=== PATIENT | male | born 1960 | race Caucasian/White ===

== ENCOUNTER → 2018-01-05 | Outpatient (CLI) | payer BC ==
--- NOTE | 2018-01-05 14:49 | NM ---
EXAMINATION TYPE: NM bone 3 phase DATE OF EXAM: 01/05/2018 COMPARISON: NONE HISTORY: Osteomyelitis, pain third digit right hand Triple phase bone scintigraphy was performed following the injection of21.9 mCi Tc 99m MDP. Immediat e images and 5 hours post injection images acquired over the hands. FINDINGS: Blood flow and blood pool activity show symmetric radio pharmaceutical uptake to the hands, there is only questionable mild increased uptake to the distal third digit on immediate blood pool images. Del ayed focal uptake is noted at the distal aspect of the third digit of the right hand. IMPRESSION: Abnormal uptake noted on delayed imaging to the third digit of the right hand distally, correlate for trauma, infection not excluded.
== END | disposition home or self-care (01) ==
LOC: RADNMMAIN 07:39
PROVIDERS: ATTEND Orthopaedic Surgery Hand Surgery
DX: M79.644 Pain in right finger(s) (principal); M79.89 Other specified soft tissue disorders
CPT/HCPCS: 78315; A9503

== ENCOUNTER → 2018-01-20 | Outpatient (CLI) | payer BC ==
[2018-01-20 11:31] LABS: Basophils # (A) 0.1 k/uL (0-0.2); Basophils % (A) 0 %; Eosinophils # (A) 0.3 k/uL (0-0.7); Eosinophils % (A) 2 %; HCT 47.1 % (39.0-53.0); HGB 15.6 gm/dL (13.0-17.5); Lymphocytes # (A) 4.1 k/uL (1.0-4.8); Lymphocytes % (A) 31 %; MCH 30.4 pg (25.0-35.0); MCHC 33.2 g/dL (31.0-37.0); MCV 91.6 fL (80.0-100.0); Mean Platelet Volume 6.7; Monocytes # (A) 0.7 k/uL (0-1.0); Monocytes % (A) 5 %; Neutrophils # (A) 7.7 k/uL (1.3-7.7); Neutrophils % (A) 59 %; Platelet Count 356 k/uL (150-450); RBC 5.15 m/uL (4.30-5.90); RDW 13.3 % (11.5-15.5); WBC 13.2 k/uL (3.8-10.6)
[2018-01-20 12:07] LABS: ALT 38 U/L (21-72); AST 26 U/L (17-59); Alkaline Phosphatase 61 U/L (38-126); Anion Gap 13 mmol/L; Blood Urea Nitrogen 18 mg/dL (9-20); C Reactive Protein <5.0 mg/L (<10.0); Calcium 9.4 mg/dL (8.4-10.2); Carbon Dioxide 27 mmol/L (22-30); Chloride 105 mmol/L (98-107); Glucose 149 mg/dL (74-99); Potassium 4.5 mmol/L (3.5-5.1); Sodium 145 mmol/L (137-145); Total Bilirubin 0.3 mg/dL (0.2-1.3); Total Protein 6.3 g/dL (6.3-8.2)
[2018-01-20 13:46] LABS: Erythrocyte Sedimentation Rate 8 mm/hr (0-15)
== END | disposition home or self-care (01) ==
LOC: LABWHC1 10:51
PROVIDERS: ATTEND Internal Medicine Infectious Disease
DX: M86.8X4 Other osteomyelitis, hand (principal)
CPT/HCPCS: 36415; 80053; 85025; 85652; 86140

== ENCOUNTER 2018-02-01 13:26 | Day surgery (SDC) | payer BC ==
[2018-01-29 11:58] VITALS: BMI 33.4
[~2018-02-01 13:26] MED LIST: cefTRIAXone 2 MG in SODIUM CHLORIDE 0.9% 50 ML IVPB ONE; cefTRIAXone IN SWFI 2,000 MG/20 ML SYRINGE IVP ONE
[2018-02-01 14:03] VITALS: TEMP 98.2
[2018-02-01 14:07] LABS: Glucose,Whole Blood 240 mg/dL (75-99)
[2018-02-01] MEDS ORDERED: LIDOCAINE 2% INJ 20 MG/ML SQ ONE (14:20)
--- NOTE | 2018-02-01 14:43 | IR ---
PICC LINE PLACEMENT: HISTORY: Infection requiring long-term antibiotic therapy PROCEDURE: Ultrasound and fluoroscopic guidance of PICC line placement. COMPLICATIONS: None ANESTHESIA: 1. 1% Lidocaine locally. FINDINGS/TECHNIQUE: The procedure was explained to the patient. The risks, complications, benefits and alternatives were discussed and any questions were answered. Informed consent was obtained. The patient was placed supine on the fluoroscopic table and prepped and draped in the usual sterile fas ion. Utilizing a 21 gauge needle and sonographic and fluoroscopic guidance, access in the vein was achieved and there is placement of a 0.018 guidewire. The vein is patent. A 4-F sheath was placed o maximilian the guidewire. The guidewire and dilator were removed and a 4-F. PICC line was placed through th e sheath with the tip at the level of the SVC. The sheath was removed, the catheter was flushed and sutured into position. The patient was stable throughout the procedure and remained stable upon disc harge from the Department of Radiology. The vein puncture was patent under ultrasound. A james scale image was obtained to document patency of the vein punctured. All elements of the maximal barrier technique were utilized. FLUOROSCOPY TIME: 0.1 minute, one image submitted. IMPRESSION: Successful PICC line placement under ultrasound and fluoroscopic guidance.
[2018-02-01 15:03] VITALS: BP 156/74; PULSE 78; RESP 16
== END 2018-02-01 14:55 | disposition home or self-care (01) ==
LOC: CATHCVL 13:26
PROVIDERS: ATTEND Radiology Diagnostic Radiology
DX: M86.8X4 Other osteomyelitis, hand (principal); M19.90 Unspecified osteoarthritis, unspecified site; I73.1 Thromboangiitis obliterans [Buerger's disease]; E78.00 Pure hypercholesterolemia, unspecified; E11.42 Type 2 diabetes mellitus with diabetic polyneuropathy; Z79.4 Long term (current) use of insulin; Z79.899 Other long term (current) drug therapy; F17.210 Nicotine dependence, cigarettes, uncomplicated
CPT/HCPCS: 36569; 76937; 77001; C1751; C1769; J2001; J0696

== ENCOUNTER → 2018-04-05 | Outpatient (CLI) | payer BC ==
[2018-04-05 07:45] LABS: Basophils # (A) 0.1 k/uL (0-0.2); Basophils % (A) 1 %; Eosinophils # (A) 0.3 k/uL (0-0.7); Eosinophils % (A) 3 %; HGB 17.1 gm/dL (13.0-17.5); Lymphocytes # (A) 1.8 k/uL (1.0-4.8); Lymphocytes % (A) 16 %; MCH 30.5 pg (25.0-35.0); MCHC 32.8 g/dL (31.0-37.0); MCV 92.9 fL (80.0-100.0); Mean Platelet Volume 6.9; Monocytes # (A) 0.8 k/uL (0-1.0); Monocytes % (A) 7 %; Neutrophils # (A) 8.2 k/uL (1.3-7.7); Neutrophils % (A) 73 %; Platelet Count 356 k/uL (150-450); RBC 5.59 m/uL (4.30-5.90); RDW 13.5 % (11.5-15.5); WBC 11.3 k/uL (3.8-10.6)
== END | disposition home or self-care (01) ==
LOC: LABWHC1 06:56
PROVIDERS: ATTEND Internal Medicine Infectious Disease
DX: M86.9 Osteomyelitis, unspecified (principal)
CPT/HCPCS: 36415; 85025

== ENCOUNTER → 2018-08-11 | Outpatient (CLI) | payer BC ==
[2018-08-11 07:36] LABS: HCT 51.8 % (39.0-53.0); HGB 17.1 gm/dL (13.0-17.5); MCH 31.1 pg (25.0-35.0); MCV 94.2 fL (80.0-100.0); Mean Platelet Volume 6.7; Platelet Count 377 k/uL (150-450); RDW 13.6 % (11.5-15.5); WBC 12.2 k/uL (3.8-10.6)
[2018-08-11 12:56] LABS: Albumin 4.4 g/dL (3.80-4.90); Albumin/Globulin Ratio 2.59 (1.20-2.10); Anion Gap 11.7 mmol/L (4.00-12.00); Calcium 9.6 mg/dL (8.7-10.3); Carbon Dioxide 23.3 mmol/L (21.6-31.8); Globulin 1.7 g/dL (2.1-3.7); LDL Cholesterol,Calculated 107.8 mg/dL (0.0-131.0); Potassium 4.9 mmol/L (3.5-5.5); Total Bilirubin 0.6 mg/dL (0.3-1.2); Total Protein 6.1 g/dL (6.2-8.2); VLDL Calculation 27.2 mg/dL (5.00-40.00)
== END ==
LOC: LABWHC1 06:40
PROVIDERS: ATTEND Internal Medicine Endocrinology, Diabetes & Metabolism
DX: E11.65 Type 2 diabetes mellitus with hyperglycemia (principal); E29.1 Testicular hypofunction
CPT/HCPCS: 36415; 80053; 80061; 83036; 84153; 84403; 85027

== ENCOUNTER → 2018-08-13 | Outpatient (CLI) | payer BC | LOC: LABWHC1 06:32 | PROVIDERS: ATTEND Internal Medicine Endocrinology, Diabetes & Metabolism | DX: E11.65 Type 2 diabetes mellitus with hyperglycemia (principal); E29.1 Testicular hypofunction | CPT/HCPCS: 82043; 82570 ==

== ENCOUNTER → 2018-08-17 | Outpatient (CLI) | payer BC | END | disposition home or self-care (01) | LOC: LABWHC1 06:39 | PROVIDERS: ATTEND Internal Medicine Endocrinology, Diabetes & Metabolism | DX: E29.1 Testicular hypofunction (principal) | CPT/HCPCS: 36415; 84403 ==

== ENCOUNTER → 2018-12-02 | Outpatient (CLI) | payer BC ==
[2018-12-02 08:02] LABS: HCT 47.8 % (39.0-53.0); HGB 15.7 gm/dL (13.0-17.5); MCH 30.7 pg (25.0-35.0); MCHC 32.7 g/dL (31.0-37.0); Mean Platelet Volume 6.3; Platelet Count 393 k/uL (150-450); RBC 5.09 m/uL (4.30-5.90); RDW 13.1 % (11.5-15.5); WBC 11.1 k/uL (3.8-10.6)
[2018-12-02 14:37] LABS: Hemoglobin A1C 8.2 % (4.0-6.0)
== END | disposition home or self-care (01) ==
LOC: LABWHC1 06:40
PROVIDERS: ATTEND Internal Medicine Endocrinology, Diabetes & Metabolism
DX: E11.65 Type 2 diabetes mellitus with hyperglycemia (principal); E29.1 Testicular hypofunction
CPT/HCPCS: 36415; 80061; 83036; 84443; 85027

== ENCOUNTER → 2019-01-19 | Outpatient (CLI) | payer BC ==
[2019-01-19 13:48] LABS: HCT 49.8 % (39.0-53.0); HGB 16.2 gm/dL (13.0-17.5); MCH 30.3 pg (25.0-35.0); MCHC 32.5 g/dL (31.0-37.0); MCV 93.2 fL (80.0-100.0); Mean Platelet Volume 6.4; Platelet Count 392 k/uL (150-450); RBC 5.35 m/uL (4.30-5.90); RDW 13.3 % (11.5-15.5); WBC 12.9 k/uL (3.8-10.6)
[2019-01-19 21:17] LABS: Hemoglobin A1C 8.9 % (4.0-6.0)
== END | disposition home or self-care (01) ==
LOC: LABWHC1 12:41
PROVIDERS: ATTEND Internal Medicine Endocrinology, Diabetes & Metabolism
DX: E29.1 Testicular hypofunction (principal); E11.65 Type 2 diabetes mellitus with hyperglycemia
CPT/HCPCS: 36415; 83036; 84403; 85027

== ENCOUNTER → 2019-03-21 | Outpatient (CLI) | payer BC ==
[2019-03-21 08:51] LABS: HCT 50.6 % (39.0-53.0); HGB 16.4 gm/dL (13.0-17.5); MCH 30.5 pg (25.0-35.0); MCHC 32.4 g/dL (31.0-37.0); Mean Platelet Volume 7.6; Platelet Count 412 k/uL (150-450); RBC 5.38 m/uL (4.30-5.90); RDW 14.8 % (11.5-15.5); WBC 14.3 k/uL (3.8-10.6)
[2019-03-21 17:07] LABS: Hemoglobin A1C 7.7 % (4.0-6.0)
== END | disposition home or self-care (01) ==
LOC: LABWHC1 06:32
PROVIDERS: ATTEND Internal Medicine Endocrinology, Diabetes & Metabolism
DX: E11.65 Type 2 diabetes mellitus with hyperglycemia (principal); E29.1 Testicular hypofunction
CPT/HCPCS: 36415; 83036; 84403; 85027

== ENCOUNTER → 2019-07-13 | Outpatient (CLI) | payer BC ==
[2019-07-13 07:27] LABS: Basophils # (A) 0.2 k/uL (0-0.2); Basophils % (A) 2 %; Eosinophils # (A) 0.4 k/uL (0-0.7); Eosinophils % (A) 4 %; HCT 47.9 % (39.0-53.0); HGB 14.8 gm/dL (13.0-17.5); Lymphocytes # (A) 3.5 k/uL (1.0-4.8); Lymphocytes % (A) 29 %; MCV 96.7 fL (80.0-100.0); Mean Platelet Volume 6.3; Monocytes # (A) 0.7 k/uL (0-1.0); Monocytes % (A) 6 %; Neutrophils # (A) 6.8 k/uL (1.3-7.7); Neutrophils % (A) 57 %; Platelet Count 414 k/uL (150-450); RBC 4.95 m/uL (4.30-5.90); RDW 13.3 % (11.5-15.5); WBC 11.9 k/uL (3.8-10.6)
[2019-07-13 12:19] LABS: Albumin 4.3 g/dL (3.80-4.90); Albumin/Globulin Ratio 2.69 (1.60-3.17); Anion Gap 11.8 mmol/L (4.00-12.00); Carbon Dioxide 25.2 mmol/L (21.6-31.8); Chol/HDL Ratio 5.54; Globulin 1.6 g/dL (1.6-3.3); LDL Cholesterol,Calculated 103.8 mg/dL (0.0-131.0); Potassium 4.4 mmol/L (3.5-5.5); Total Bilirubin 0.5 mg/dL (0.2-1.2); Total Protein 5.9 g/dL (6.2-8.2); VLDL Calculation 23.2 mg/dL (5.00-40.00)
[2019-07-13 14:36] LABS: Hemoglobin A1C 7.7 % (4.0-6.0)
== END | disposition home or self-care (01) ==
LOC: LABWHC1 07:01
PROVIDERS: ATTEND Internal Medicine Endocrinology, Diabetes & Metabolism
DX: E11.65 Type 2 diabetes mellitus with hyperglycemia (principal); E29.1 Testicular hypofunction
CPT/HCPCS: 36415; 80053; 80061; 82043; 82570; 83036; 84153; 84403; 84443; 85025

== ENCOUNTER 2020-04-09 06:03 | Day surgery (SDC) | payer BC ==
[2020-04-05 16:10] VITALS: BMI 33.4
--- NOTE | 2020-04-08 11:48 | P.GSHP ---
History of Present Illness H&P Date: 04/08/20 59 yo male who was in [facility] recently with an 8mm left proximal ureteral stone. He was given treatment options and chose to have eswl left h=if he didnt pass it in the interim He comes for eswl left He also has an 8mm llp renal stone - Constitutional Constitutional: Denies chills, Denies fever - EENT Eyes: denies blurred vision, denies pain Ears, nose, mouth and throat: Denies headache, Denies sore throat - Cardiovascular Cardiovascular: Denies chest pain, Denies shortness of breath - Respiratory Respiratory: Denies cough, Denies 7 - Gastrointestinal Gastrointestinal: Denies abdominal pain, Denies diarrhea, Denies nausea, Denies vomiting - Genitourinary (Female) Genitourinary: Denies dysuria, Denies hematuria - Genitourinary (Male) Genitourinary: Denies dysuria, Denies hematuria - Musculoskeletal Musculoskeletal: Denies myalgias - Integumentary Integumentary: Denies pruritus, Denies rash - Neurological Neurological: Denies numbness, Denies weakness - Psychiatric Psychiatric: Denies anxiety, Denies depression - Endocrine Endocrine: Denies fatigue, Denies weight change Past Medical History Past Medical History: Diabetes Mellitus, Osteoarthritis (OA), Pulmonary Embolus (PE), Renal Disease, Sleep Apnea/CPAP/BIPAP, Vascular Disorder Additional Past Medical History / Comment(s): Buerger's disease, hx of osteomylitis and blood clot at picc line which may have caused Pulmonary emboli., uses c-pap machine, state he is to see Dr. Daniel for elevated wbc's ., kidney stone. History of Any Multi-Drug Resistant Organisms: None Reported Past Surgical History: Back Surgery, Orthopedic Surgery Additional Past Surgical History / Comment(s): L great toe and R 2nd toe amputation.R forearm surgery for a laceration. Past Anesthesia/Blood Transfusion Reactions: No Reported Reaction Past Psychological History: No Psychological Hx Reported Smoking Status: Current every day smoker Past Alcohol Use History: None Reported Additional Past Alcohol Use History / Comment(s): Started smoking as a teenager smokes 1/2 ppd or less, Hx of 1 1/2 PPD. Past Drug Use History: None Reported - Past Family History Mother Family Medical History: Cancer Additional Family Medical History / Comment(s): Breast Medications and Allergies Home Medications Medication Instructions Recorded Confirmed Type Cilostazol [Pletal] 100 mg PO DAILY 01/29/18 04/05/20 History Insulin Glargine [Lantus] 100 unit SQ HS 01/29/18 04/05/20 History metFORMIN HCL 1,000 mg PO BID 01/29/18 04/05/20 History Cholecalciferol (Vitamin D3) 250 mcg PO DAILY 04/05/20 04/05/20 History [Vitamin D3] Ketorolac [Toradol] 10 mg PO Q6HR 04/05/20 04/05/20 History Lutein 25 mg PO DAILY 04/05/20 04/05/20 History [place]-3 Fatty Acids/Fish Oil [Fish 1 each PO DAILY 04/05/20 04/05/20 History Oil 1,000 mg Softgel] Ozempic 0.5 mg SQ WEEKLY 04/05/20 History Rosuvastatin Calcium [Crestor] 10 mg PO DAILY 04/05/20 04/05/20 History Tamsulosin [Flomax] 0.4 mg PO HS 04/05/20 04/05/20 History Testosterone Injection 1 dose IM WEEKLY 04/05/20 History Vitamin B Complex 1 each PO DAILY 04/05/20 04/05/20 History Allergies Allergy/AdvReac Type Severity Reaction Status Date / Time No Known Allergies Allergy Verified 04/05/20 15:24 Surgical - Exam - General well developed, well nourished, no distress - Eyes PERRL - ENT no hearing loss - Neck trachea midline - Respiratory normal expansion, normal respiratory effort - Cardiovascular Rhythm: regular - Abdomen Abdomen: soft, non tender - Genitourinary normal penis with no external lesions, testicles present - Integumentary no rash, no growths - Neurologic normal coordination - Musculoskeletal normal gait, normal posture - Psychiatric oriented to time, oriented to person, oriented to place, speech is normal, memory intact Results - Imaging Abdominal x-ray: report reviewed, image reviewed CT scan - abdomen: report reviewed, image reviewed CT scan - pelvis: report reviewed, image reviewed Assessment and Plan Assessment: Impression: Left proximal ureteral stone Plan: eswl left
[~2020-04-09 06:03] MED LIST changes: +LACTATED RINGERS 1,000 ML IV SCH; +LIDOCAINE 1% (10MG/ML) FOR IV START INTRADERMA PRN; -cefTRIAXone 2 MG in SODIUM CHLORIDE 0.9% 50 ML IVPB ONE; -cefTRIAXone IN SWFI 2,000 MG/20 ML SYRINGE IVP ONE
--- NOTE | 2020-04-09 06:18 | XR ---
EXAMINATION TYPE: XR KUB DATE OF EXAM: 04/09/2020 6:12 AM CLINICAL HISTORY: Left-sided kidney stones scheduled for lithotripsy. TECHNIQUE: Two Upright KUB images of the abdomen are obtained. COMPARISON: None. FINDINGS: There is 5 mm left-sided renal calculus at L3 vertebral body level. There are probable 1-2 additional smaller calculi bilaterally near this level. Suboptimal due to overlying bowel gas and fecal material. Calcification of the vas deferens. Multilev el spurring throughout the spine. Disc space narrowing lower lumbar levels. Lung bases are clear. IMPRESSION: As above.
[2020-04-09 06:40] LABS: Glucose,Whole Blood 68 mg/dL (75-99)
[2020-04-09] MEDS ORDERED: ONDANSETRON 4 MG/2 ML VIAL ONE (06:42)
[2020-04-09] MEDS ORDERED: DEXAMETHASONE SOD PHOSPHATE 10 MG/ML 1 ML VIAL IV ONE (06:46)
[2020-04-09] MEDS ORDERED: DEXTROSE 50% SYRINGE 50 ML IVP ONE (06:46)
[2020-04-09 07:03] LABS: Glucose,Whole Blood 117 mg/dL (75-99)
[2020-04-09] MEDS ORDERED: fentaNYL (PF) 50 MCG/ML 2 ML AMP ONE (07:36)
[2020-04-09] MEDS ORDERED: PROPOFOL 10 MG/ML 20 ML VIAL IV ONE (07:36)
[2020-04-09] MEDS ORDERED: MIDAZOLAM 2 MG/2 ML VIAL ONE (07:36)
[2020-04-09] MEDS ORDERED: KETAMINE 10 MG/ML 20 ML VIAL ONE (07:36)
--- NOTE | 2020-04-09 08:39 | P.OP ---
Date of Procedure: 04/09/20 Preoperative Diagnosis: Left ureteral calculus Postoperative Diagnosis: Left ureteral calculus Procedure(s) Performed: Extracorporeal shock wave lithotripsy of left ureteral calculus Anesthesia: MAC Surgeon: Jamari Diaz Pathology: none sent Condition: stable Disposition: PACU Indications for Procedure: The patient is a 59-year-old male who was recently admitted to [facility] with severe left flank pain and was discovered to have an 8 mm proximal left ureteral calculus. Treatment options were reviewed with Dr. Covington and the patient has elected to proceed with ESWL treatment. Description of Procedure: The patient was taken to the operating suite and placed in the supine position on the fluoroscopy table. His proximal left ureteral calculus was localized using biplanar fluoroscopy. Intravenous sedation was initially utilized. Lithotripsy was performed using the [employer] compact delta unit. The patient received 3000 shocks at level 4. A 2 mminute pause was taken after 200 shocks. [address]ally half way through the procedure it was elected to convert the patient to general anesthesia via orotracheal patient as the patient would intermittently partially obstruct his airway. There appeared to be good fragmentation of the calculus. Patient tolerated procedure well and left the operating room awake and in satisfactory condition. He will be continued on tamsulosin 0.4 mg daily and will be seen back by Dr. Covington for follow-up in 1 week.
[2020-04-09 09:08] LABS: Glucose,Whole Blood 95 mg/dL (75-99)
[2020-04-09 09:12] VITALS: TEMP 98
[2020-04-09 10:13] VITALS: RESP 20
[2020-04-09 10:23] VITALS: BP 152/80; PULSE 79
== END 2020-04-09 10:18 | disposition home or self-care (01) ==
LOC: ORWHC2ENDO 06:03
PROVIDERS: ATTEND Urology
DX: N20.1 Calculus of ureter (principal); Z79.899 Other long term (current) drug therapy; Z80.3 Family history of malignant neoplasm of breast; F17.210 Nicotine dependence, cigarettes, uncomplicated; Z98.890 Other specified postprocedural states; Z87.442 Personal history of urinary calculi; E11.9 Type 2 diabetes mellitus without complications; G47.33 Obstructive sleep apnea (adult) (pediatric); M19.90 Unspecified osteoarthritis, unspecified site; Z86.711 Personal history of pulmonary embolism; Z99.89 Dependence on other enabling machines and devices; Z89.412 Acquired absence of left great toe; Z89.421 Acquired absence of other right toe(s); Z79.4 Long term (current) use of insulin
CPT/HCPCS: 74018; 50590; J2250; J1100; J2405; J3010; J2704

== ENCOUNTER → 2020-04-16 | Outpatient (CLI) | payer BC ==
--- NOTE | 2020-04-16 07:32 | XR ---
EXAMINATION TYPE: XR KUB DATE OF EXAM: 04/16/2020 COMPARISON: 04/09/2020 HISTORY: Left-sided lithotripsy TECHNIQUE: One view abdominal series FINDINGS: The osseous structures are intact. The bowel gas pattern is nonspecific. Hypertrophic and degenerati ve change of the spine. Calcifications in the pelvis could be related to the vas deferens. Arthropath y of the hips hypertrophic change of the acetabulum. Right kidney: Mainly obscured by overlying bowel gas with no definite suspicious calcifications. Left kidney: There is a 5 mm lower pole left renal calculus. Suspect at least 2 punctate 1 mm adjacen t calculi. Previously noted left ureteral suspected calculus is not seen with certainty and today's exam. IMPRESSION: 1. Left renal calculi. No definite ureteral calculus seen on today's exam.
== END | disposition home or self-care (01) ==
LOC: RADXRMAIN 06:21
PROVIDERS: ATTEND Urology
DX: N20.0 Calculus of kidney (principal)
CPT/HCPCS: 74018

== ENCOUNTER → 2020-06-26 | Outpatient (CLI) | payer BC ==
[2020-06-26 08:00] LABS: HCT 48.7 % (39.0-53.0); HGB 15.7 gm/dL (13.0-17.5); MCH 31.2 pg (25.0-35.0); MCHC 32.3 g/dL (31.0-37.0); MCV 96.8 fL (80.0-100.0); Mean Platelet Volume 6.6; Platelet Count 416 k/uL (150-450); RBC 5.04 m/uL (4.30-5.90); RDW 13.6 % (11.5-15.5); WBC 16.8 k/uL (3.8-10.6)
[2020-06-26 14:04] LABS: African American GFR (CKD) 112.5 (60.0-200.0); Albumin 4.5 g/dL (3.80-4.90); Albumin/Globulin Ratio 2.25 (1.60-3.17); Anion Gap 10.5 mmol/L (4.00-12.00); Calcium 9.7 mg/dL (8.7-10.3); Carbon Dioxide 24.5 mmol/L (21.6-31.8); Chol/HDL Ratio 3.53; LDL Cholesterol,Calculated 71.8 mg/dL (0.0-131.0); Non-African American GFR(CKD) 97.1 (60.0-200.0); Potassium 4.9 mmol/L (3.5-5.5); Total Bilirubin 0.5 mg/dL (0.3-1.2); Total Protein 6.5 g/dL (6.2-8.2); VLDL Calculation 14.2 mg/dL (5.00-40.00)
[2020-06-26 14:13] LABS: Prostate Specific Antigen 0.6 ng/mL (0.0-4.5)
[2020-06-26 14:24] LABS: Hemoglobin A1C 7.1 % (4.0-6.0)
[2020-06-26 14:50] LABS: Urine Creatinine 102.2 mg/dL
== END | disposition home or self-care (01) ==
LOC: LABWHC1 07:19
PROVIDERS: ATTEND Internal Medicine Endocrinology, Diabetes & Metabolism
DX: E11.65 Type 2 diabetes mellitus with hyperglycemia (principal); E29.1 Testicular hypofunction
CPT/HCPCS: 36415; 80053; 80061; 82043; 82570; 83036; 84153; 84403; 84443; 85027

== ENCOUNTER → 2020-08-14 | Outpatient (CLI) | payer BC ==
--- NOTE | 2020-08-14 17:06 | XR ---
EXAMINATION TYPE: XR hand complete RT DATE OF EXAM: 08/14/2020 CLINICAL HISTORY: Osteomyelitis of finger of right hand. Third digit osteomyelitis. TECHNIQUE: Frontal, lateral and oblique images of the right hand are obtained. COMPARISON: None. FINDINGS: There is osseous erosion of the distal aspect of the third digit distal phalanx to the lev el of the mid diaphysis. There is no acute fracture/dislocation evident in the right hand. Tiny well- corticated osseous fragment at the base of the second digit proximal phalanx may represent old avulsi on injury. IMPRESSION: Osseous erosion of the distal aspect of the third digit distal phalanx, consistent with h istory of osteomyelitis.
== END | disposition home or self-care (01) ==
LOC: RADXRMAIN 10:58
PROVIDERS: ATTEND Internal Medicine Infectious Disease
DX: M85.841 Other specified disorders of bone density and structure, right hand (principal)

== ENCOUNTER → 2021-01-21 | Outpatient (CLI) | payer BC ==
[2021-01-21 21:19] LABS: Hemoglobin A1C 7.6 % (4.0-6.0)
[2021-01-21 22:31] LABS: African American GFR (CKD) 111.7 (60.0-200.0); Albumin 5.1 g/dL (3.80-4.90); Albumin/Globulin Ratio 2.04 (1.60-3.17); Anion Gap 12.6 mmol/L (4.00-12.00); BUN/Creat Ratio 16.25 Ratio (12.00-20.00); Calcium 10.4 mg/dL (8.7-10.3); Carbon Dioxide 24.4 mmol/L (21.6-31.8); Chol/HDL Ratio 5.2; Globulin 2.5 g/dL (1.6-3.3); LDL Cholesterol,Calculated 147.4 mg/dL (0.0-131.0); Non-African American GFR(CKD) 96.4 (60.0-200.0); Potassium 5.4 mmol/L (3.5-5.5); Prostate Specific Antigen 1.1 ng/mL (0.0-4.5); Total Bilirubin 0.8 mg/dL (0.3-1.2); Total Protein 7.6 g/dL (6.2-8.2); VLDL Calculation 24.6 mg/dL (5.00-40.00)
[2021-01-22 02:30] LABS: Urine Creatinine 46.1 mg/dL
[2021-01-22 15:38] LABS: HCT 51.2 % (39.6-50.0); MCH 31.1 pg (27.0-32.0); MCHC 31.3 g/dL (32.0-37.0); MCV 99.4 fL (80.0-97.0); Mean Platelet Volume 10.4 fL (9.5-12.2); Platelet Count 448 X 10*3/uL (140-440); RBC 5.15 X 10*6/uL (4.40-5.60); RDW 14.4 % (11.5-14.5); WBC 13.13 X 10*3/uL (4.50-10.00)
== END | disposition home or self-care (01) ==
LOC: LABWHC1 10:21
PROVIDERS: ATTEND Internal Medicine Endocrinology, Diabetes & Metabolism
DX: E29.1 Testicular hypofunction (principal); E11.65 Type 2 diabetes mellitus with hyperglycemia
CPT/HCPCS: 36415; 80053; 80061; 82043; 82570; 83036; 84153; 84403; 84443; 85027

== ENCOUNTER → 2022-03-13 | Outpatient (CLI) | payer BC ==
[2022-03-13 14:09] LABS: HCT 46.5 % (39.6-50.0); HGB 14.9 g/dL (13.0-17.0); MCH 30.4 pg (27.0-32.0); MCV 94.9 fL (80.0-97.0); Mean Platelet Volume 9.6 fL (9.5-12.2); NRBC Per 100 WBC 0 /100 WBCS (0.0-0.0); Platelet Count 464 X 10*3/uL (140-440); WBC 11.36 X 10*3/uL (4.50-10.00)
[2022-03-13 14:39] LABS: ALT 28 U/L (10-49); AST 23 U/L (14-35); African American GFR (CKD) 117.4 (60.0-200.0); Albumin 4.4 g/dL (3.8-4.9); Albumin/Globulin Ratio 1.97 (1.60-3.17); Alkaline Phosphatase 75 U/L (41-126); BUN/Creat Ratio 16.64 Ratio (12.00-20.00); Blood Urea Nitrogen 11.6 mg/dL (9.0-27.0); Calcium 10.1 mg/dL (8.7-10.3); Carbon Dioxide 26.6 mmol/L (20.0-27.5); Chloride 103 mmol/L (96-109); Globulin 2.3 g/dL (1.6-3.3); Glucose 91 mg/dL (70-110); Non-African American GFR(CKD) 101.3 (60.0-200.0); Potassium 5.5 mmol/L (3.5-5.5); Sodium 142 mmol/L (135-145); Total Bilirubin <0.15 mg/dL (0.30-1.20); Total Protein 6.7 g/dL (6.2-8.2)
== END | disposition home or self-care (01) ==
LOC: LABWHC1 09:35
PROVIDERS: ATTEND Internal Medicine Endocrinology, Diabetes & Metabolism
DX: E11.65 Type 2 diabetes mellitus with hyperglycemia (principal); E29.1 Testicular hypofunction
CPT/HCPCS: 36415; 80053; 84153; 84403; 84443; 85027

== ENCOUNTER → 2022-06-19 | Outpatient (CLI) | payer BC ==
[2022-06-19 08:04] LABS: ALT 55 U/L (4-49); AST 53 U/L (17-59); African American GFR (CKD) >90 (>60 ml/min/1.73 sqM); Albumin 4.4 g/dL (3.5-5.0); Albumin/Globulin Ratio 1.8; Alkaline Phosphatase 70 U/L (38-126); Anion Gap 8 mmol/L; Blood Urea Nitrogen 16 mg/dL (9-20); Calcium 9.8 mg/dL (8.4-10.2); Carbon Dioxide 31 mmol/L (22-30); Chloride 102 mmol/L (98-107); Globulin 2.4 g/dL; Glucose 139 mg/dL (74-99); Non-African American GFR(CKD) >90 (>60 ml/min/1.73 sqM); Potassium 5.4 mmol/L (3.5-5.1); Sodium 141 mmol/L (137-145); Total Bilirubin 0.4 mg/dL (0.2-1.3); Total Protein 6.8 g/dL (6.3-8.2)
[2022-06-19 10:33] LABS: HCT 49.4 % (39.6-50.0); MCH 30.2 pg (27.0-32.0); MCHC 32.4 g/dL (32.0-37.0); MCV 93.4 fL (80.0-97.0); Mean Platelet Volume 9.7 fL (9.5-12.2); NRBC Per 100 WBC 0 /100 WBCS (0.0-0.0); Platelet Count 427 X 10*3/uL (140-440); RBC 5.29 X 10*6/uL (4.40-5.60); RDW 13.8 % (11.5-14.5); WBC 13.91 X 10*3/uL (4.50-10.00)
== END | disposition home or self-care (01) ==
LOC: LABWHC1 07:11
PROVIDERS: ATTEND Internal Medicine Endocrinology, Diabetes & Metabolism
DX: E29.1 Testicular hypofunction (principal); E11.65 Type 2 diabetes mellitus with hyperglycemia
CPT/HCPCS: 36415; 80053; 84153; 84403; 84443; 85027

== ENCOUNTER → 2022-06-26 | Outpatient (CLI) | payer MEDICARE, BC ==
--- NOTE | 2022-06-26 12:05 | XR ---
EXAMINATION TYPE: XR KUB DATE OF EXAM: 06/26/2022 COMPARISON: NONE HISTORY: Pain TECHNIQUE: One view abdominal series FINDINGS: The osseous structures are intact. The bowel gas pattern is nonspecific. There is a 1.5 cm mid pole possibly renal pelvic calcification of the left kidney. 6 mm lower pole calcification seen. On the ri ght no definite calcifications are noted. Hypertrophic and degenerative changes of the spine. Calcifi cations in the pelvis likely related to the vas deferens arthropathy of the hips. IMPRESSION: 1. Left-sided nephrolithiasis largest calcification seen centrally measuring 1.5 cm
== END | disposition home or self-care (01) ==
LOC: RADXRMAIN 11:43
PROVIDERS: ATTEND Urology
DX: N20.0 Calculus of kidney (principal)
CPT/HCPCS: 74018

== ENCOUNTER 2022-07-07 07:14 | Day surgery (SDC) | payer BC, MEDICARE ==
[2022-07-04 10:42] VITALS: BMI 33.4
--- NOTE | 2022-07-06 19:41 | P.GSHP ---
History of Present Illness H&P Date: 07/06/22 61 yo male with a history of stones was recently identifed with two left renal stones because of pain. He xrays in [place] and came to see me without the xrays. he was still hsaving pain so I did a kub and identified a 15 left renal pelvic stone .and 4 mm llp stone. He was given treatment options and chose eswl left. He comes for this procedure. - Constitutional Constitutional: Denies chills, Denies fever - EENT Eyes: denies blurred vision, denies pain Ears, nose, mouth and throat: Denies headache, Denies sore throat - Cardiovascular Cardiovascular: Denies chest pain, Denies shortness of breath - Respiratory Respiratory: Denies cough, Denies 7 - Gastrointestinal Gastrointestinal: Denies abdominal pain, Denies diarrhea, Denies nausea, Denies vomiting - Genitourinary (Female) Genitourinary: Denies dysuria, Denies hematuria - Genitourinary (Male) Genitourinary: Denies dysuria, Denies hematuria - Musculoskeletal Musculoskeletal: Denies myalgias - Integumentary Integumentary: Denies pruritus, Denies rash - Neurological Neurological: Denies numbness, Denies weakness - Psychiatric Psychiatric: Denies anxiety, Denies depression - Endocrine Endocrine: Denies fatigue, Denies weight change Past Medical History Past Medical History: Diabetes Mellitus, Osteoarthritis (OA), Pulmonary Embolus (PE), Renal Disease, Sleep Apnea/CPAP/BIPAP, Vascular Disorder Additional Past Medical History / Comment(s): Buerger's disease, hx of osteomylitis and blood clot at picc line which may have caused Pulmonary emboli., uses c-pap machine, state he is to see Dr. Daniel for elevated wbc's ., kidney stone. Has a history of a bone infection. 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 R forearm surgery for a laceration. Past Anesthesia/Blood Transfusion Reactions: No Reported Reaction Smoking Status: Current every day smoker - Past Family History Mother Family Medical History: Cancer Additional Family Medical History / Comment(s): Breast Medications and Allergies Home Medications Medication Instructions Recorded Confirmed Type Insulin Glargine [Lantus] 51 unit SQ BID 01/29/18 07/04/22 History metFORMIN HCL [Glucophage] 1,000 mg PO BID 01/29/18 07/04/22 History Cholecalciferol (Vitamin D3) 250 mcg PO DAILY 04/05/20 07/04/22 History [Vitamin D3] Lutein 25 mg PO DAILY 04/05/20 07/04/22 History [place]-3 Fatty Acids/Fish Oil [Fish 1 each PO DAILY 04/05/20 07/04/22 History Oil 1,000 mg Softgel] Rosuvastatin Calcium [Crestor] 10 mg PO DAILY 04/05/20 07/04/22 History Testosterone Injection 1 dose IM Q14D 04/05/20 07/04/22 History Vitamin B Complex 1 each PO DAILY 04/05/20 07/04/22 History HYDROcodone/APAP 5-325MG [Climax 1 - 2 tab PO DAILY PRN 07/04/22 07/04/22 History 5-325] Tirzepatide [Mounjaro] 5 mg SQ Q7D 07/04/22 07/04/22 History Allergies Allergy/AdvReac Type Severity Reaction Status Date / Time No Known Allergies Allergy Verified 07/04/22 10:19 Surgical - Exam - General well developed, well nourished, no distress - Eyes normal ocular movement, no icteric - ENT no hearing loss, no congestion - Neck no masses, trachea midline - Respiratory normal respiratory effort, clear to auscultation - Abdomen Abdomen: soft, non tender, no guarding, no rigid, no rebound - Integumentary no rash, no abnormal pigmentation - Neurologic no disoriented, no combative - Psychiatric oriented to time, oriented to person, oriented to place, speech is normal, memory intact Results - Imaging Abdominal x-ray: report reviewed, image reviewed Assessment and Plan Assessment: impression: left renal stone Plan: eswl left
[2022-07-07] MEDS ORDERED: ONDANSETRON 4 MG/2 ML VIAL ONE (07:48)
[2022-07-07 08:04] LABS: Glucose,Whole Blood 88 mg/dL (70-110)
[2022-07-07] MEDS ORDERED: MIDAZOLAM 2 MG/2 ML VIAL ONE (08:12)
[2022-07-07] MEDS ORDERED: DEXAMETHASONE SOD PHOSPHATE 4 MG/ML 1 ML VIAL IVP ONE (08:12)
[2022-07-07] MEDS ORDERED: PROPOFOL 10 MG/ML 20 ML VIAL IV ONE (08:12)
[2022-07-07] MEDS ORDERED: LACTATED RINGERS 1,000 ML IV ONE (08:12)
[2022-07-07] MEDS ORDERED: GLYCOPYRROLATE 0.2 MG/ML 2 ML VIAL ONE (08:12)
[2022-07-07] MEDS ORDERED: LIDOCAINE 2% INJ 20 MG/ML (2 ML VIAL) ONE (08:12)
[2022-07-07] MEDS ORDERED: KETAMINE 10 MG/ML 20 ML VIAL ONE (08:12)
[2022-07-07] MEDS ORDERED: ONDANSETRON 4 MG/2 ML VIAL IVP ONE (08:13)
[2022-07-07 08:16] VITALS: TEMP 97.3
--- NOTE | 2022-07-07 08:49 | P.OP ---
Date of Procedure: 07/07/22 Preoperative Diagnosis: Left renal calculi Postoperative Diagnosis: Same Procedure(s) Performed: ESWL, 2500 shocks at energy level IV Anesthesia: MAC Surgeon: John Covington Estimated Blood Loss (ml): 0 Pathology: none sent Condition: stable Disposition: PACU Indications for Procedure: Patient is 61. He has a painful left renal stone, 15 mm in the left UPJ and a 4-5 mm left lower pole stone. He comes for shockwave lithotripsy Description of Procedure: Patient brought to the operating suite. He's placed on the lithotripsy table. With the compact delta 2 lithotripter the stone in the left renal pelvis is seen in 2 views. He is given IV sedation. 2000 shocks at energy level IV administered to break up the renal pelvic stone. I then moved to the left lower pole stone administered 500 shocks. At the end of the procedure the patient is awake and returned recovery in good condition. He will be discharged home upon recovery and follow-up in the office in one week with a KUB. Condition is good.
[2022-07-07 09:15] LABS: Glucose,Whole Blood 81 mg/dL (70-110)
[2022-07-07 09:26] VITALS: BP 121/69; PULSE 99; RESP 17
--- NOTE | 2022-07-07 09:56 | XR ---
KUB HISTORY: Left-sided renal stones, lithotripsy Frontal KUB and 2 images correlated to prior exam 06/26/2022 Multiple calcifications over the left kidney show a similar appearance. Calcification is also suspect ed over the lower pole of the right kidney as on prior exam. No interval changes. IMPRESSION: Bilateral nephrolithiasis.
== END 2022-07-07 09:50 | disposition home or self-care (01) ==
LOC: ORWHC2ENDO 07:14
PROVIDERS: ATTEND Urology
DX: N20.0 Calculus of kidney (principal); E11.9 Type 2 diabetes mellitus without complications; M19.90 Unspecified osteoarthritis, unspecified site; G47.33 Obstructive sleep apnea (adult) (pediatric); F17.200 Nicotine dependence, unspecified, uncomplicated; Z86.711 Personal history of pulmonary embolism; Z98.890 Other specified postprocedural states; Z80.3 Family history of malignant neoplasm of breast; Z79.4 Long term (current) use of insulin; Z79.84 Long term (current) use of oral hypoglycemic drugs; Z79.899 Other long term (current) drug therapy
CPT/HCPCS: 74018; 50590; J2250; J1100; J2405; J2704; J2001

== ENCOUNTER → 2022-07-14 | Outpatient (CLI) | payer MEDICARE, BC ==
--- NOTE | 2022-07-14 10:26 | XR ---
KUB HISTORY: N 20.1, renal calculus, one week post lithotripsy Correlation to prior exam 07/07/2022 Single frontal KUB submitted There is calcification seen at the lower pole the left kidney, multiple calculi are suspected, the pr eviously identified calculus at the left renal pelvis level is no longer seen. Largest calculus at th e lower pole the left kidney is thought to measure 1 cm. Calculus at the lower pole the right kidney is again seen. No other significant interval change. IMPRESSION: Previously identified calculus at the midpole the left kidney may be fragmented and retai david within the lower pole of the left kidney with some additional calcifications.
== END | disposition home or self-care (01) ==
LOC: RADXRMAIN 10:04
PROVIDERS: ATTEND Urology
DX: N20.0 Calculus of kidney (principal)
CPT/HCPCS: 74018

== ENCOUNTER → 2022-08-11 | Outpatient (CLI) | payer BC, MEDICARE ==
--- NOTE | 2022-08-11 08:05 | XR ---
EXAMINATION TYPE: XR KUB DATE OF EXAM: 08/11/2022 COMPARISON: 07/14/2022 HISTORY: Pain TECHNIQUE: One view abdominal series FINDINGS: The osseous structures are intact. The bowel gas pattern is nonspecific. Hypertrophic and degenerati ve change of the spine. 8 mm lower pole right renal calculus. Faint density overlying the lower pole left kidney. Suspect numerous (approximately 6) small fragmented calcifications overlying the lower l eft kidney. Largest measures approximately 6 mm. Calcification of the vas deferens noted. IMPRESSION: 1. 8 mm lower pole right renal calculus. 2. Faint density overlying the lower pole left kidney. Suspect numerous (approximately 6) small fragm ented calcifications overlying the lower left kidney. Largest measures approximately 6 mm.
== END | disposition home or self-care (01) ==
LOC: RADXRMAIN 06:52
PROVIDERS: ATTEND Urology
DX: N20.0 Calculus of kidney (principal); R55 Syncope and collapse
CPT/HCPCS: 74018

== ENCOUNTER → 2022-12-17 | Outpatient (CLI) | payer BC, MEDICARE ==
[2022-12-17 10:34] LABS: Basophils # (A) 0.11 X 10*3/uL (0.00-0.10); Basophils % (A) 0.9 %; Eosinophils # (A) 0.44 X 10*3/uL (0.04-0.35); Eosinophils % (A) 3.4 %; HCT 52.2 % (39.6-50.0); HGB 16.6 g/dL (13.0-17.0); Immature Grans, Automated 0.9 %; Lymphocytes % (A) 31.3 %; MCH 29.7 pg (27.0-32.0); MCHC 31.8 g/dL (32.0-37.0); MCV 93.5 fL (80.0-97.0); Mean Platelet Volume 9.6 fL (9.5-12.2); Monocytes # (A) 1.25 X 10*3/uL (0.20-1.00); Monocytes % (A) 9.8 %; NRBC Per 100 WBC 0 /100 WBCS (0.0-0.0); Neutrophils # (A) 6.86 X 10*3/uL (1.80-7.70); Neutrophils % (A) 53.7 %; Platelet Count 451 X 10*3/uL (140-440); RBC 5.58 X 10*6/uL (4.40-5.60); RDW 14.8 % (11.5-14.5); WBC 12.77 X 10*3/uL (4.50-10.00)
[2022-12-17 11:14] LABS: ALT 32 U/L (10-49); AST 20 U/L (14-35); African American GFR (CKD) 92.4 (60.0-200.0); Albumin 4.4 g/dL (3.8-4.9); Albumin/Globulin Ratio 1.83 (1.60-3.17); Alkaline Phosphatase 65 U/L (41-126); Blood Urea Nitrogen 17.4 mg/dL (9.0-27.0); Calcium 9.9 mg/dL (8.7-10.3); Carbon Dioxide 26.9 mmol/L (20.0-27.5); Chloride 104 mmol/L (96-109); Chol/HDL Ratio 4.64 Ratio; Globulin 2.4 g/dL (1.6-3.3); Glucose 128 mg/dL (70-110); LDL Cholesterol,Calculated 109.1 mg/dL (0.0-131.0); Non-African American GFR(CKD) 79.7 (60.0-200.0); Potassium 5.3 mmol/L (3.5-5.5); Sodium 144 mmol/L (135-145); Total Protein 6.8 g/dL (6.2-8.2); VLDL Calculation 17.22 mg/dL (5.00-40.00)
== END | disposition home or self-care (01) ==
LOC: LABWHC1 07:12
PROVIDERS: ATTEND Internal Medicine Endocrinology, Diabetes & Metabolism
DX: E11.65 Type 2 diabetes mellitus with hyperglycemia (principal); E29.1 Testicular hypofunction
CPT/HCPCS: 36415; 80053; 80061; 82043; 82570; 83036; 84153; 84403; 84443; 85025

== ENCOUNTER → 2023-04-16 | Outpatient (CLI) | payer MEDICARE ==
[2023-04-16 14:25] LABS: HCT 50.9 % (39.6-50.0); HGB 16.6 d/dL (13.0-17.0); MCH 30.3 pg (27.0-32.0); MCHC 32.6 d/dL (32.0-37.0); MCV 92.9 FL (80.0-97.0); Mean Platelet Volume 9.9 FL (9.5-12.2); NRBC Per 100 WBC 0 X 10*3/uL (0.00-0.01); Platelet Count 388 X 10*3/uL (140-440); RBC 5.48 X 10*6/uL (4.40-5.60); RDW 14.4 % (11.5-14.5)
[2023-04-16 15:31] LABS: ALT 31 U/L (10-49); AST 23 U/L (14-35); Albumin 4.2 d/dL (3.8-4.9); Alkaline Phosphatase 67 U/L (41-126); Blood Urea Nitrogen 12.7 mg/dL (9.0-27.0); Calcium 9.8 mg/dL (8.7-10.3); Carbon Dioxide 27.6 mmol/L (21.6-31.8); Chloride 103 mmol/L (96-109); Globulin 2.1 d/dL (1.6-3.3); Glucose 117 mg/dL (70-110); Potassium 5.1 mmol/L (3.5-5.5); Sodium 141 mmol/L (135-145); Total Bilirubin 0.3 mg/dL (0.3-1.2); Total Protein 6.3 d/dL (6.2-8.2)
== END | disposition home or self-care (01) ==
LOC: LABWHC1 07:02
PROVIDERS: ATTEND Internal Medicine Endocrinology, Diabetes & Metabolism
DX: E11.65 Type 2 diabetes mellitus with hyperglycemia (principal); E29.1 Testicular hypofunction
CPT/HCPCS: 36415; 80053; 82043; 82570; 84153; 84403; 84443; 85027

== ENCOUNTER → 2023-08-24 | Outpatient (CLI) | payer MEDICARE ==
[2023-08-25 04:04] LABS: ALT 44 U/L (10-49); AST 24 U/L (14-35); Albumin 4.7 g/dL (3.8-4.9); Albumin/Globulin Ratio 1.81 Ratio (1.60-3.17); Alkaline Phosphatase 83 U/L (41-126); Blood Urea Nitrogen 16.2 mg/dL (9.0-27.0); Calcium 10.1 mg/dL (8.7-10.3); Carbon Dioxide 25.7 mmol/L (21.6-31.8); Chloride 96 mmol/L (96-109); Globulin 2.6 g/dL (1.6-3.3); Glucose 546 mg/dL (70-110); Potassium 6.1 mmol/L (3.5-5.5); Sodium 134 mmol/L (135-145); Total Bilirubin 0.2 mg/dL (0.3-1.2); Total Protein 7.3 g/dL (6.2-8.2)
[2023-08-25 04:39] LABS: HCT 54.1 % (39.6-50.0); HGB 17.8 g/dL (13.0-17.0); MCH 30.5 pg (27.0-32.0); MCHC 32.9 g/dL (32.0-37.0); MCV 92.6 FL (80.0-97.0); Mean Platelet Volume 10.2 FL (9.5-12.2); NRBC Per 100 WBC 0 X 10*3/uL (0.00-0.01); Platelet Count 394 X 10*3/uL (140-440); RBC 5.84 X 10*6/uL (4.40-5.60); RDW 14.6 % (11.5-14.5); WBC 10.83 X 10*3/uL (4.50-10.00)
[2023-08-25 05:59] LABS: Microalbumin Creatinine Ratio <42 mg/g Cr (0-30); Urine Creatinine 28.3 mg/dL (39.0-259.0)
== END | disposition home or self-care (01) ==
LOC: LABWHC1 14:54
PROVIDERS: ATTEND Internal Medicine Endocrinology, Diabetes & Metabolism
DX: E11.65 Type 2 diabetes mellitus with hyperglycemia (principal); E29.1 Testicular hypofunction
CPT/HCPCS: 36415; 80053; 82043; 82570; 84153; 84403; 84443; 85027

== ENCOUNTER → 2023-12-14 | Outpatient (CLI) | payer MEDICARE ==
[2023-12-14 11:25] LABS: HCT 54.1 % (39.6-50.0); HGB 17.8 g/dL (13.0-17.0); MCH 30.6 pg (27.0-32.0); MCHC 32.9 g/dL (32.0-37.0); MCV 93.1 FL (80.0-97.0); Mean Platelet Volume 9.8 FL (9.5-12.2); NRBC Per 100 WBC 0 X 10*3/uL (0.00-0.01); Platelet Count 437 X 10*3/uL (140-440); RBC 5.81 X 10*6/uL (4.40-5.60); RDW 13.9 % (11.5-14.5); WBC 9.97 X 10*3/uL (4.50-10.00)
[2023-12-14 19:07] LABS: ALT 46 U/L (10-49); AST 25 U/L (14-35); Albumin 4.6 g/dL (3.8-4.9); Alkaline Phosphatase 82 U/L (41-126); Blood Urea Nitrogen 12.4 mg/dL (9.0-27.0); Calcium 10.4 mg/dL (8.7-10.3); Carbon Dioxide 28.4 mmol/L (21.6-31.8); Chloride 101 mmol/L (96-109); Chol/HDL Ratio 4.32 Ratio; Globulin 2.7 g/dL (1.6-3.3); Glucose 75 mg/dL (70-110); LDL Cholesterol,Calculated 100.5 mg/dL (0.0-131.0); Potassium 5.6 mmol/L (3.5-5.5); Prostate Specific Antigen 0.69 ng/mL (0.000-4.500); Sodium 142 mmol/L (135-145); T4, Free (Free Thyroxine) 1.21 ng/dL (0.80-1.80); Total Bilirubin 0.3 mg/dL (0.3-1.2); Total Protein 7.3 g/dL (6.2-8.2)
== END | disposition home or self-care (01) ==
LOC: LABWHC1 07:18
PROVIDERS: ATTEND Internal Medicine Endocrinology, Diabetes & Metabolism
DX: E11.65 Type 2 diabetes mellitus with hyperglycemia (principal); E29.1 Testicular hypofunction; R53.83 Other fatigue
CPT/HCPCS: 36415; 80053; 80061; 82043; 82533; 82570; 83036; 84146; 84153; 84305; 84403; 84439; 84443; 85027; 86376

== ENCOUNTER → 2024-07-19 | Outpatient (CLI) | payer MEDICARE ==
[2024-07-19 10:25] LABS: HCT 49.6 % (39.6-50.0); HGB 16.4 g/dL (13.0-17.0); MCH 30.3 pg (27.0-32.0); MCHC 33.1 g/dL (32.0-37.0); MCV 91.7 FL (80.0-97.0); Mean Platelet Volume 9.7 FL (9.5-12.2); NRBC Per 100 WBC 0 X 10*3/uL (0.00-0.01); Platelet Count 424 X 10*3/uL (140-440); RBC 5.41 X 10*6/uL (4.40-5.60); RDW 14.2 % (11.5-14.5); WBC 12.56 X 10*3/uL (4.50-10.00)
[2024-07-19 10:50] LABS: ALT 35 U/L (10-49); AST 25 U/L (14-35); Albumin 4.5 g/dL (3.8-4.9); Alkaline Phosphatase 87 U/L (41-126); BUN/Creat Ratio 17.12 Ratio (12.00-20.00); Blood Urea Nitrogen 13.7 mg/dL (9.0-27.0); Calcium 9.9 mg/dL (8.7-10.3); Carbon Dioxide 26.1 mmol/L (21.6-31.8); Chloride 100 mmol/L (96-109); Chol/HDL Ratio 5.01 Ratio; Globulin 2.5 g/dL (1.6-3.3); Glucose 100 mg/dL (70-110); LDL Cholesterol,Calculated 124.9 mg/dL (0.0-131.0); Potassium 5.6 mmol/L (3.5-5.5); Sodium 139 mmol/L (135-145); Total Bilirubin 0.2 mg/dL (0.3-1.2)
== END | disposition home or self-care (01) ==
LOC: LABWHC1 07:15
PROVIDERS: ATTEND Internal Medicine Endocrinology, Diabetes & Metabolism
CPT/HCPCS: 36415; 80053; 80061; 82043; 82570; 83036; 84153; 84403; 84443; 85027

== ENCOUNTER → 2024-12-05 | Outpatient (CLI) | payer MEDICARE ==
[2024-12-05 10:40] LABS: ALT 38 U/L (10-49); AST 30 U/L (14-35); Albumin 4.3 g/dL (3.8-4.9); Albumin/Globulin Ratio 1.72 Ratio (1.60-3.17); Alkaline Phosphatase 83 U/L (41-126); BUN/Creat Ratio 15.12 Ratio (12.00-20.00); Blood Urea Nitrogen 12.1 mg/dL (9.0-27.0); Calcium 9.6 mg/dL (8.7-10.3); Chloride 105 mmol/L (96-109); Chol/HDL Ratio 4.91 Ratio; Globulin 2.5 g/dL (1.6-3.3); Glucose 91 mg/dL (70-110); LDL Cholesterol,Calculated 120.7 mg/dL (0.0-131.0); Potassium 4.8 mmol/L (3.5-5.5); Sodium 143 mmol/L (135-145); Total Bilirubin 0.3 mg/dL (0.3-1.2); Total Protein 6.8 g/dL (6.2-8.2)
== END | disposition home or self-care (01) ==
LOC: LABWHC1 06:59
PROVIDERS: ATTEND Internal Medicine Endocrinology, Diabetes & Metabolism
DX: E11.65 Type 2 diabetes mellitus with hyperglycemia (principal)
CPT/HCPCS: 36415; 80053; 80061; 82043; 82570; 83036; 84443